=== PATIENT | female | born 1970 | race Caucasian/White ===

== ENCOUNTER 2017-12-06 11:31 | Emergency (ER) | payer OTHER ==
[2017-12-06 11:53] VITALS: BMI 33.2
[2017-12-06 12:10] LABS: URINE BILIRUBIN NEGATIVE (NEGATIVE); URINE BLOOD LARGE (NEGATIVE); URINE GLUCOSE (UA) NEGATIVE (NEGATIVE); URINE LEUKOCYTE ESTERASE NEGATIVE Leu/uL (NEGATIVE); URINE PROTEIN NEGATIVE mg/dL (<30 mg/dL); URINE UROBILINOGEN 0.2 E.U./dL (<1 E.U./dL)
[2017-12-06 12:11] LABS: URINE COLOR YELLOW (YELLOW)
[2017-12-06 12:18] LABS: URINE RBC TNTC /hpf (0-2)
[2017-12-06 12:19] LABS: URINE APPEARANCE SL CLOUDY (CLEAR); URINE BACTERIA NEG (NEG); URINE EPITHELIAL CELLS 0 - 2 /hpf (0-5); URINE WBC NEGATIVE /hpf (0-6)
--- NOTE | 2017-12-06 12:36 | ED PDOC ---
Arrival/HPI - General Chief Complaint: Female Genitourinary Time Seen by Provider: 12/06/17 11:59 Historian: Patient - History of Present Illness Narrative History of Present Illness (Text): 12/06/17 12:00 47 year old female with no significant past medical history, presents to the Emergency department complaining of lower abdominal pain and vaginal bleeding since yesterday. Patient states that she believes she is 5 months since her last normal menstrual period was 5 months ago. Patient denies any test for confirmation or follow up with LICENSED THERAPIST. pt stats she started to develop lower abdominal cramping yesterday and noticed some vaginal spotting last night and this morning. pt states lower abdominal pain has improved. Patient denies any pain medication, fever, back pain, chest pain, shortness of breath, urinary symptoms, nausea, vomiting, or any other complaints. Time/Duration: Other (Yesterday) Symptom Onset: Gradual Symptom Course: Unchanged Quality: Aching, Cramping Context: Home Past Medical History - Provider Review Nursing Documentation Reviewed: Yes - Travel History Have you recently traveled outside [place] w/in the past 3 mons?: No - Infectious Disease Hx of Infectious Diseases: None - Psychiatric Hx Substance Use: No Family/Social History - Physician Review Nursing Documentation Reviewed: Yes Family/Social History: No Known Family HX Smoking Status: Never Smoked Hx Alcohol Use: No Hx Substance Use: No Allergies/Home Meds Allergies/Adverse Reactions: Allergies No Known Allergies Allergy (Verified 12/06/17 11:52) Home Medications: Home Meds Medication Instructions Recorded Confirmed Multivit/Folic Acid/I 1 tab PO DAILY 12/06/17 12/06/17 [] Review of Systems - Physician Review All systems were reviewed & negative as marked: Yes - Review of Systems Constitutional: absent: Fevers Respiratory: absent: SOB Cardiovascular: absent: Chest Pain Gastrointestinal: Abdominal Pain. absent: Nausea, Vomiting Genitourinary Female: Vaginal Bleeding. absent: Dysuria, Hematuria, Urine Output Changes Musculoskeletal: absent: Back Pain Physical Exam Vital Signs Reviewed: Yes Vital Signs Temp Pulse Resp BP Pulse Ox 12/06/17 14:43 68 18 118/67 100 12/06/17 11:55 98.2 F 76 18 121/74 99 Temperature: Afebrile Blood Pressure: Normal Pulse: Regular Respiratory Rate: Normal Appearance: Positive for: Well-Appearing, Non-Toxic, Comfortable Pain Distress: None Mental Status: Positive for: Alert and Oriented X 3 - Systems Exam Head: Present: Atraumatic Conjunctiva: Present: Normal Mouth: Present: Moist Mucous Membranes Neck: Present: Normal Range of Motion Respiratory/Chest: Present: Clear to Auscultation, Good Air Exchange. No: Respiratory Distress, Accessory Muscle Use Cardiovascular: Present: Regular Rate and Rhythm, Normal S1, S2. No: Murmurs Abdomen: No: Tenderness, Distention, Peritoneal Signs, Rebound, Guarding Back: Present: Normal Inspection. No: CVA Tenderness Upper Extremity: Present: Normal Inspection. No: Cyanosis, Edema Lower Extremity: Present: Normal Inspection. No: Edema Neurological: Present: GCS=15, Speech Normal Skin: Present: Warm, Dry, Normal Color. No: Rashes Psychiatric: Present: Alert, Oriented x 3 Medical Decision Making ED Course and Treatment: 12/06/17 12:00 Impression: 47 year old female presents to the Emergency department for lower abdominal pain and vaginal bleeding. no Period x 5 month. urine HCG- negative Plan: -- Urinalysis -- Labs -- Transvaginal US -- Reassess and disposition Progress Notes: urine hcg was negative and confirmed with Negative beta hcg; cbc: wnl cmp; wnl ua; + blood BETA hcg; negative transvaginal US; FINDINGS: UTERUS: Measures 11.15 x 7.47 x 7.49 cm. Normal in size and appearance. The uterus has a heterogeneous appearance but there is no discrete mass ENDOMETRIUM: Measures 10 mm in diameter. Unremarkable. CERVIX: The cervix is 4.18 cm in length and contains 2 nabothian cysts measuring 1.6 x 1.14 and 0.65 x 0.63 cm RIGHT OVARY: Not seen LEFT OVARY: Measures 2.66 x 1.20 x 2.08 cm cm. No solid mass. Normal flow. Cyst measuring 7 mm FREE FLUID: No significant free fluid noted. OTHER FINDINGS: None. IMPRESSION: Enlarged heterogeneous uterus without evidence of a discrete mass. ct abd/pelvis; FINDINGS: LOWER THORAX: Unremarkable. LIVER: Unremarkable. No gross lesion or ductal dilatation. GALLBLADDER AND BILE DUCTS: Unremarkable. PANCREAS: Unremarkable. No gross lesion or ductal dilatation. SPLEEN: Unremarkable. ADRENALS: Unremarkable. No mass. KIDNEYS AND URETERS: Unremarkable. No hydronephrosis. No solid mass. VASCULATURE: Unremarkable. No aortic aneurysm. BOWEL: Unremarkable. No obstruction. No gross mural thickening. APPENDIX: Unremarkable. Normal appendix. PERITONEUM: Unremarkable. No free fluid. No free air. LYMPH NODES: Unremarkable. No enlarged lymph nodes. BLADDER: Unremarkable. REPRODUCTIVE: The uterus is moderately enlarged measuring 12.7 x 8.0 x 9.7 cm. BONES: No acute fracture. OTHER FINDINGS: None. IMPRESSION: No acute intra-abdominal findings 12/06/17 17:52 pt reassessment; pt is non toxic well appearing; all results discussed with patient; pt was advised to f/u with LICENSED THERAPIST for enlarged uterus. pt was advised immediate return if symptoms worsen,persist or if new symptoms develop. pt states bleeding has stopped. Patient verbalizes understanding of discharge instructions and need for immediate followup. all aspects of this case were discussed the attending of record. Impression: Vaginal bleeding, abdominal pain, enlarged uterus Increase fluids Motrin every 6 hours as needed for pain Follow-up with primary care physician within the next 2 days Follow-up with a occupational health manager within the next 2 days regarding your enlarged uterus. Return immediately if symptoms worsen persist or if new concerning symptoms develop: High fevers, worsening pain, dizziness, weakness, nausea, vomiting or if any other concerning symptoms develop Reassessment Condition: Re-examined - Lab Interpretations Lab Results: 12/06/17 13:21 12/06/17 13:21 Lab Results 12/06/17 14:00: Beta HCG, Quant < 2.39 12/06/17 13:21: WBC 10.5, RBC 4.69, Hgb 12.3, Hct 37.9, MCV 80.8, MCH 26.2, MCHC 32.5, RDW 22.2 H, Plt Count 341, MPV 10.4, Gran % 82.1 H, Lymph % (Auto) 12.8 L, [place] % (Auto) 4.3, Eos % (Auto) 0.5 L, Baso % (Auto) 0.3, Gran # 8.65 H , Lymph # (Auto) 1.4, [place] # (Auto) 0.5, Eos # (Auto) 0.1, Baso # (Auto) 0.03 12/06/17 13:21: Blood Type O POSITIVE, Antibody Screen Negative, BBK History Checked No verified bt 12/06/17 13:21: Sodium 142, Potassium 4.7, Chloride 106, Carbon Dioxide 24, Anion Gap 16, BUN 4 L, Creatinine 0.6 L, Est GFR ( Amer) > 60, Est GFR ( Non-Af Amer) > 60, Random Glucose 100, Calcium 9.4, Total Bilirubin 0.4, AST 22 , ALT 21, Alkaline Phosphatase 91, NT-Pro-B Natriuret Pep Cancelled, Total Protein 8.0, Albumin 4.2, Globulin 3.7, Albumin/Globulin Ratio 1.1 12/06/17 12:07: Urine Color Yellow, Urine Appearance Sl cloudy, Urine pH 6.0, Ur Specific [place] 1.020, Urine Protein Negative, Urine Glucose (UA) Negative, Urine Ketones Negative, Urine Blood Large H, Urine Nitrate Negative, Urine Bilirubin Negative, Urine Urobilinogen 0.2, Ur Leukocyte Esterase Negative, Urine RBC Tntc, Urine WBC Negative, Ur Epithelial Cells 0 - 2, Urine Bacteria Neg - RAD Interpretation Radiology Orders: 12/06/17 12:16 TRANSVAGINAL [US] Stat 12/06/17 15:26 ABD & PELVIS W/O PO OR IV CONT [CT] Stat - Scribe Statement The provider has reviewed the documentation as recorded by the Sarabjit Garces training under [facility] All medical record entries made by the [employer] were at my direction and personally dictated by me. I have reviewed the chart and agree that the record accurately reflects my personal performance of the history, physical exam, medical decision making, and the department course for this patient. I have also personally directed, reviewed, and agree with the discharge instructions and disposition. Disposition/Present on Arrival - Present on Arrival Any Indicators Present on Arrival: No History of DVT/PE: No History of Uncontrolled Diabetes: No Urinary Catheter: No History of Decub. Ulcer: No History Surgical Site Infection Following: None - Disposition Have Diagnosis and Disposition been Completed?: Yes Diagnosis: Abdominal pain, Vaginal bleeding Disposition: HOME/ ROUTINE Disposition Time: 17:59 Patient Plan: Discharge Patient Problems: Current Active Problems Problem Status Onset Abdominal pain Acute Vaginal bleeding Acute Condition: GOOD Additional Instructions: Increase fluids Motrin every 6 hours as needed for pain Follow-up with primary care physician within the next 2 days Follow-up with a occupational health manager within the next 2 days regarding your enlarged uterus. Return immediately if symptoms worsen persist or if new concerning symptoms develop: High fevers, worsening pain, dizziness, weakness, nausea, vomiting or if any other concerning symptoms develop. Referrals: Marie Oliver MD [Staff Provider] - Follow up with primary [facility] [Outside] - Follow up with [facility] [Outside] - Follow up with primary Claudia Conde MD [Medical Doctor] - Follow up with primary Forms: [employer] ([place]), WORK NOTE
[2017-12-06 13:40] LABS: BASO # 0.03 K/mm3 (0.0-2.0); BASO % 0.3 % (0.0-3.0); EOS # 0.1 (0.0-0.7); EOS % 0.5 % (1.5-5.0); GRAN # 8.65 (1.4-6.5); GRAN % 82.1 % (50.0-68.0); HEMOGLOBIN 12.3 g/dL (12.0-16.0); LYMPH # 1.4 (1.2-3.4); LYMPH % 12.8 % (22.0-35.0); MEAN CELL VOLUME 80.8 fl (80.0-105.0); MEAN CORPUSCULAR HEMOGLOBIN 26.2 pg (25.0-35.0); MEAN CORPUSCULAR HGB CONC 32.5 g/dl (31.0-37.0); MEAN PLATELET VOLUME 10.4 fl (7.0-11.0); MONO # 0.5 (0.1-0.6); MONO % 4.3 % (1.0-6.0); RBC 4.69 10^6/uL (3.5-6.1); RED CELL DISTRIBUTION WIDTH 22.2 % (11.5-14.5); WHITE BLOOD COUNT 10.5 10^3/ul (4.5-11.0)
[2017-12-06 13:42] LABS: ALB/GLOB RATIO 1.1 (1.1-1.8); ALBUMIN 4.2 g/dL (3.0-4.8); ALT/SGPT 21 U/L (7-56); AST/SGOT 22 U/L (14-36); BLOOD UREA NITROGEN 4 mg/dL (7-21); CALCIUM 9.4 mg/dL (8.4-10.5); GFR AFRICAN-AMERICAN > 60; GFR NON-AFRICAN AMERICAN > 60
[2017-12-06 14:42] VITALS: RESP 18
[2017-12-06 14:43] VITALS: TEMP 98.2
--- NOTE | 2017-12-06 14:54 | US ---
Date of service: 12/06/2017 HISTORY: pain/bleeding ? COMPARISON: None available. TECHNIQUE: Transvaginal FINDINGS: UTERUS: Measures 11.15 x 7.47 x 7.49 cm. Normal in size and appearance. The uterus has a heterogeneous appearance but there is no discrete mass ENDOMETRIUM: Measures 10 mm in diameter. Unremarkable. CERVIX: The cervix is 4.18 cm in length and contains 2 nabothian cysts measuring 1.6 x 1.14 and 0.65 x 0.63 cm RIGHT OVARY: Not seen LEFT OVARY: Measures 2.66 x 1.20 x 2.08 cm cm. No solid mass. Normal flow. Cyst measuring 7 mm FREE FLUID: No significant free fluid noted. OTHER FINDINGS: None. IMPRESSION: Enlarged heterogeneous uterus without evidence of a discrete mass.
--- NOTE | 2017-12-06 17:14 | CT ---
Date of service: 12/06/2017 PROCEDURE: CT Abdomen and Pelvis without intravenous contrast HISTORY: ABDOMINAL PAIN COMPARISON: None. TECHNIQUE: Without contrast. Contrast dose: Radiation dose: Total exam DLP = 973 mGy-cm. This CT exam was performed using one or more of the following dose reduction techniques: Automated exposure control, adjustment of the mA and/or kV according to patient size, and/or use of iterative reconstruction technique. FINDINGS: LOWER THORAX: Unremarkable. LIVER: Unremarkable. No gross lesion or ductal dilatation. GALLBLADDER AND BILE DUCTS: Unremarkable. PANCREAS: Unremarkable. No gross lesion or ductal dilatation. SPLEEN: Unremarkable. ADRENALS: Unremarkable. No mass. KIDNEYS AND URETERS: Unremarkable. No hydronephrosis. No solid mass. VASCULATURE: Unremarkable. No aortic aneurysm. BOWEL: Unremarkable. No obstruction. No gross mural thickening. APPENDIX: Unremarkable. Normal appendix. PERITONEUM: Unremarkable. No free fluid. No free air. LYMPH NODES: Unremarkable. No enlarged lymph nodes. BLADDER: Unremarkable. REPRODUCTIVE: The uterus is moderately enlarged measuring 12.7 x 8.0 x 9.7 cm. BONES: No acute fracture. OTHER FINDINGS: None. IMPRESSION: No acute intra-abdominal findings
[2017-12-06 18:08] VITALS: BP 108/67; PULSE 77; O2SAT 99
== END 2017-12-06 18:16 | disposition home or self-care (01) ==
LOC: ED 11:31
DX: N93.9 Abnormal uterine and vaginal bleeding, unspecified (principal); R10.9 Unspecified abdominal pain